=== PATIENT | female | born 1985 | race Caucasian/White ===

== ENCOUNTER 2018-03-21 17:32 | Emergency (ER) | payer OTHER ==
[~2018-03-21] VITALS: Ht 160 cm; Wt 49.9 kg
[2018-03-21] MEDS ORDERED: ACETAMINOPHEN ES 500 MG TABLET PO ONE (18:30)
[2018-03-21] MEDS ORDERED: ACETAMINOPHEN ES 500 MG TABLET ONE (18:47)
[2018-03-21 19:12] VITALS: BP 126/89
--- NOTE | 2018-03-21 19:12 | NUR ---
RECEIVED REPORT FROM JEAN CLAUDE SOLORZANO FOR NIKO.
== END 2018-03-21 19:23 | disposition home or self-care (01) ==
LOC: ER 17:35
DX: S13.4XXA Sprain of ligaments of cervical spine, initial encounter (principal); S09.8XXA Other specified injuries of head, initial encounter; F43.10 Post-traumatic stress disorder, unspecified; Z60.2 Problems related to living alone; V43.52XA Car driver injured in collision with other type car in traffic accident, initial encounter; Y93.89 Activity, other specified; Y92.413 State road as the place of occurrence of the external cause; Y99.8 Other external cause status
CPT/HCPCS: 72040; 99284; A4606; Z7610